=== PATIENT | male | born 1990 | race African-American/Black ===

== ENCOUNTER 2017-02-08 09:53 | Emergency (ER) | payer SELFPAY ==
[~2017-02-08] VITALS: Ht 170.2 cm; Wt 70.0 kg
[2017-02-08 09:57] VITALS: BP 154/84; PULSE 78; RESP 14; TEMP 98.2; O2SAT 100
[2017-02-08 10:30] VITALS: BP 150/77; PULSE 80; RESP 19; O2SAT 99
--- NOTE | 2017-02-08 10:53 | PD ---
HPI Chief Complaint: Cardiac Complaint Time Seen by Provider: 10:28 Travel History International Travel<30 days: No Contact w/Intl Traveler<30days: No Traveled to known affect area: No History of Present Illness HPI 26yo F with no PMH presents to the ED with c/o palpitations and sharp midsternal chest pain for 2 minutes after taking 6 advil for tooth pain today. Said chest pain has resolved. Denies any fever, sob, n/v, abdominal pain, focal weakness or numbness. PFSH Past Medical History Medical History: Denies Significant Hx Diminished Hearing: No Tetanus Vaccination: < 5 Years Influenza Vaccination: No ?: Not Past Surgical History Surgical History: No Previous Surgery Social History Alcohol Use: Yes (on occasion) Tobacco Use: No Substance Use: No Allergies-Medications (Allergen,Severity, Reaction): Coded Allergies: No Known Allergies (Unverified , 02/08/17) Reported Meds & Prescriptions Reported Meds & Active Scripts Active No Active Prescriptions or Reported Medications Review of Systems Except as stated in HPI: all other systems reviewed are Neg Physical Exam Narrative GENERAL: 26yo F not in distress. SKIN: Focused skin assessment warm/dry. HEAD: Atraumatic. Normocephalic. EYES: Pupils equal and round. No scleral icterus. No injection or drainage. ENT: No nasal bleeding or discharge. Mucous membranes pink and moist. NECK: Trachea midline. No JVD. CARDIOVASCULAR: Regular rate and rhythm. No murmur appreciated. HR 70bpm. RESPIRATORY: No accessory muscle use. Clear to auscultation. Breath sounds equal bilaterally. GASTROINTESTINAL: Abdomen soft, non-tender, nondistended. MUSCULOSKELETAL: No obvious deformities. No clubbing. No cyanosis. No edema. NEUROLOGICAL: Awake and alert. No obvious cranial nerve deficits. Motor grossly within normal limits. Normal speech. PSYCHIATRIC: Appropriate mood and affect; insight and judgment normal. Data Data Last Documented VS Vital Signs Date Time Temp Pulse Resp B/P (MAP) Pulse Ox O2 Delivery O2 Flow Rate FiO2 02/08/17 10:19 87 100 Nasal Cannula 2.00 02/08/17 09:57 98.2 14 154/84 (107) Orders Orders Complete Blood Count With Diff (02/08/17 10:49) Basic Metabolic Panel (Bmp) (02/08/17 10:49) Magnesium (Mg) (02/08/17 10:49) Troponin I (02/08/17 10:49) Salicylates (Aspirin) (02/08/17 10:49) Tylenol (Acetaminophen) (02/08/17 10:49) Chest, Single Ap (02/08/17 ) Labs Laboratory Tests Test 02/08/17 11:00 White Blood Count 5.8 TH/MM3 Red Blood Count 3.98 MIL/MM3 Hemoglobin 12.3 GM/DL Hematocrit 35.8 % Mean Corpuscular Volume 89.9 FL Mean Corpuscular Hemoglobin 30.9 PG Mean Corpuscular Hemoglobin Concent 34.3 % Red Cell Distribution Width 14.2 % Platelet Count 262 TH/MM3 Mean Platelet Volume 8.3 FL Neutrophils (%) (Auto) 64.3 % Lymphocytes (%) (Auto) 26.6 % Monocytes (%) (Auto) 8.7 % Eosinophils (%) (Auto) 0.1 % Basophils (%) (Auto) 0.3 % Neutrophils # (Auto) 3.7 TH/MM3 Lymphocytes # (Auto) 1.5 TH/MM3 Monocytes # (Auto) 0.5 TH/MM3 Eosinophils # (Auto) 0.0 TH/MM3 Basophils # (Auto) 0.0 TH/MM3 CBC Comment DIFF FINAL Differential Comment Blood Urea Nitrogen 8 MG/DL Creatinine 1.44 MG/DL Random Glucose 108 MG/DL Calcium Level 8.2 MG/DL Magnesium Level 1.7 MG/DL Sodium Level 135 MEQ/L Potassium Level 4.6 MEQ/L Chloride Level 104 MEQ/L Carbon Dioxide Level 26.3 MEQ/L Anion Gap 5 MEQ/L Estimat Glomerular Filtration Rate 72 ML/MIN Troponin I LESS THAN 0.02 NG/ML Salicylates Level 2.6 MG/DL Acetaminophen Level LESS THAN 2.0 MCG/ML [facility] Medical Decision Making Medical Screen Exam Complete: Yes Emergency Medical Condition: Yes Interpretation(s) EKG: Sinus arrhythmia. Normal axis. No ST segment elevation or depression. Q wave V1, V2. Differential Diagnosis Electrolyte abnormality vs. atypical chest pain vs. anxiety Narrative Course 26yo M with palpitations and atypical sharp chest pain that has resolved. Labs reviewed, no leukocytosis. Troponin negative. Creatinine 1.44, instructed pt to follow up with PMD. Acetaminophen and salicylate low. Pt has been observed in the ED without any symptoms. Return precautions given. Diagnosis Primary Impression: Palpitation Patient Instructions: General Instructions Departure Forms: Tests/Procedures Additional Instructions: Your creatinine was mildly elevated at 1.44 today. Please follow up with your primary care physician in 2-3 days. Return to the ED if symptoms worsen. Med/Other Pt SpecificInfo: No Change to Meds Scripts No Active Prescriptions or Reported Meds Disposition: 01 DISCHARGE HOME Condition: Stable Evelyn Peterson DO Feb 08, 2017 10:53
--- NOTE | 2017-02-08 11:22 | RADRPT ---
EXAM DATE/TIME: 02/08/2017 10:52 [facility] COMPARISON: No previous studies available for comparison. INDICATIONS : Shortness of breath, chest tightness, and feeling of rapid heart beat for several hours in the smith g. MEDICAL HISTORY : None. SURGICAL HISTORY : None. ENCOUNTER: Initial ACUITY: 1 day PAIN SCORE: 0/10 LOCATION: Bilateral chest FINDINGS: A single view of the chest demonstrates the lungs to be symmetrically aerated without evidence of mas s, infiltrate or effusion. The cardiomediastinal contours are unremarkable. Osseous structures are intact. CONCLUSION: No acute disease. Mj Malik MD on February 08, 2017 at 11:20 Board Certified Radiologist. This report was verified electronically.
[2017-02-08 11:31] LABS: AUTOMATED NEUTROPHIL # 3.7 TH/MM3 (1.8-7.7); BASOPHIL % 0.3 % (0.0-2.0); EOSINOPHIL % 0.1 % (0.0-4.0); HEMATOCRIT 35.8 % (39.0-51.0); HEMO FLAGS DIFF FINAL; LYMPH % 26.6 % (9.0-44.0); LYMPHOCYTE # 1.5 TH/MM3 (1.0-4.8); MEAN CELL VOLUME 89.9 FL (80.0-100.0); MEAN CORPUSCULAR HEMOGLOBIN 30.9 PG (27.0-34.0); MEAN CORPUSCULAR HGB CONC 34.3 % (32.0-36.0); MONO % 8.7 % (0.0-8.0); NEUT % 64.3 % (16.0-70.0); PLATELET COUNT 262 TH/MM3 (150-450); RED BLOOD COUNT 3.98 MIL/MM3 (4.50-5.90); RED CELL DISTRIBUTION WIDTH 14.2 % (11.6-17.2); WHITE BLOOD COUNT 5.8 TH/MM3 (4.0-11.0)
[2017-02-08 11:40] LABS: ANION GAP 5 MEQ/L (5-15); BICARBONATE 26.3 MEQ/L (21.0-32.0); BLOOD UREA NITROGEN 8 MG/DL (7-18); CHLORIDE 104 MEQ/L (98-107); GLOMERULAR FILTRATION RATE 72 ML/MIN (>89); MAGNESIUM 1.7 MG/DL (1.5-2.5); POTASSIUM 4.6 MEQ/L (3.5-5.1); SODIUM (NA) 135 MEQ/L (136-145)
[2017-02-08 11:55] LABS: ACETAMINOPHEN LESS THAN 2.0 MCG/ML (10.0-30.0)
[2017-02-08 14:15] VITALS: BP 160/84
--- NOTE | 2017-02-09 13:07 | EKG ---
Date Performed: 02/08/2017 Time Performed: 10:13:08 PTAGE: 26 years EKG: Sinus rhythm with marked sinus arrhythmia Left ventricular hypertrophy by voltage Poor initial anterior forces in V1 and V2, which may be a normal variant NO PREVIOUS TRACING DOCTOR: Talib Walter Interpretating Date/Time 02/09/2017 13:06:08
== END 2017-02-08 14:26 | disposition home or self-care (01) ==
LOC: NEPC 09:53
DX: R00.2 Palpitations (principal); R07.89 Other chest pain; I49.8 Other specified cardiac arrhythmias; I51.7 Cardiomegaly
CPT/HCPCS: 71010; 80048; 80307; 83735; 84484; 85025; 93005; 99285